=== PATIENT | male | born 1955 | race Caucasian/White ===

== ENCOUNTER → 2021-08-10 | Outpatient (CLI) | payer OTHER ==
[~2021-08-10] MED LIST: ASPIR 8181 MG PO; ATORVASTATIN CA80 MG PO; CENTRUM SILVER1 EAC4 PO; COZAAR 50 MG TA50 M2 PO; FISH OIL 1,001000 M2 PO; FLOVENT HFA 4444 MCG INH; FLUNISOLIDE25 ML NASAL; FORADIL12 MCG IH; MOBIC15 MG PO; NEURONTIN 300300 M1 PO; OMEPRAZOLE 20 M20 M1 PO; TRICOR145 MG PO
== END ==
LOC: SJCVCIMAG 11:21
PROVIDERS: ATTEND Internal Medicine
DX: I08.3 Combined rheumatic disorders of mitral, aortic and tricuspid valves (principal); I10 Essential (primary) hypertension